=== PATIENT | male | born 1975 | race Caucasian/White ===

== ENCOUNTER 2017-09-25 06:15 | Day surgery (SDC) | payer BC ==
[2017-09-20 08:15] VITALS: BMI 29.5
--- NOTE | 2017-09-25 00:50 | HP ---
HISTORY OF PRESENT ILLNESS: Mr. Turk is a 42-year-old man known to us from previous evaluations of both neck and lower back issues, but returns today with worsening L5 and S1 pains bilaterally, left is worse than right. He has new MRI on disk on touchdown imaging that revealed calcified disk osteop hyte complex at L5 bilateral traversing S1 nerve root addition of the bilateral L5 foramina ___ __ conservative efforts. He hopes to move forward with surgery. PAST MEDICAL HISTORY: Significant for gout. PAST SURGICAL HISTORY: None listed. CURRENT MEDICATIONS: TRAMADOL and NAPROXEN. ALLERGIES: No known drug allergies. PHYSICAL EXAMINATION: NEUROLOGIC: The patient is alert and oriented x3. Gait is severely antalgic. Lower extremity motor exam is normal. ASSESSMENT: Lumbar radiculopathy. PLAN: Dr. Ramirez met with the patient, reviewed imaging and ultimately advocated for an L5 decompress ion. He explained to the patient the risks, benefits, and alternatives to the procedure. The patien t expressed understanding and would like to move forward with surgery as discussed. I do believe the patient is mentally competent and capable of making medical decisions for himself and we will move f orward with surgery as planned. Miguel Christina PA-C dictating for Dr. Ramirez.
[2017-09-25] MEDS ORDERED: CEFAZOLIN/Water 2 GM/20 ML SYRINGE ONE ×2 (06:53→12:40)
[2017-09-25] MEDS ORDERED: Fentanyl 100 MCG/2 ML VIAL ONE ×4 (07:06→11:08)
[2017-09-25] MEDS ORDERED: Midazolam HCl 2 mg/2 ml Vial ONE (07:06)
[2017-09-25] MEDS ORDERED: Bupivacaine PF 0.5% 30 ML VIAL ONE (08:30)
[2017-09-25] MEDS ORDERED: Bupivacaine HCl 0.5%/Epinephrine 1:200,000/PF 30 ml Vial ONE (09:15)
[2017-09-25] MEDS ORDERED: Tamsulosin HCl 0.4 MG CAP ONE (10:34)
[2017-09-25] MEDS ORDERED: Ondansetron HCl/PF 4 MG/2 ML Vial ONE (10:35)
[2017-09-25] MEDS ORDERED: HYDROcodone/Acetaminophen 5/325 mg Tablet ONE (11:41)
--- NOTE | 2017-09-25 11:46 | OP ---
DATE OF PROCEDURE: 09/25/2017 SURGEON: Titus Ramirez M.D. COPING MACHINE OPERATOR: Miguel Christina PA-C. INDICATION: Pain. DIAGNOSIS: Lumbar radiculopathy. PROCEDURE: Bilateral L5 hemilaminectomy, medial facetectomy, decompression. ANESTHESIA: General. TECHNIQUE: The patient was brought into the operating room and placed under general anesthesia. He was flipped from a supine to a prone position on the operating room table. A linear incision was lynda nned over the L5 segment. This encompassed a portion of an older incision. After prepping and drapi ng and after an appropriate operative pause, the incision was created. The soft tissues were swept a way from midline. Self-retaining retractor was placed in the wound for optimal exposure. After conf irming the appropriate level with C-arm fluoroscopy, a high-speed cutting drill bit as well as 2, 3 a nd 4-mm Kerrison was used to perform bilateral partial hemilaminectomies along the inferior aspect of L5 and the superior aspect of S1. The descending S1 nerve roots were identified and these were subs equently decompressed by performing medial facetectomies. At the completion of the procedure, the pa tient's lateral recess at the L5-S1 segment was well decompressed bilaterally. The wound was then ir rigated. Hemostasis was maintained throughout. The wound was then closed in anatomic layers and a p ressure dressing was applied. There were no known procedural complications.
[2017-09-25] MEDS ORDERED: ePHEDrine/0.9% NaCl/PF SYRINGE 50 mg/10 ml ONE (14:51)
[2017-09-25] MEDS ORDERED: PROPOFOL 200 MG/20 ML VIAL ONE (14:51)
[2017-09-25] MEDS ORDERED: Glycopyrrolate 0.2 MG/ML 5 ML SYRINGE ONE (14:51)
[2017-09-25] MEDS ORDERED: Lidocaine 1% PF 5 ML VIAL ONE (14:51)
== END 2017-09-25 13:15 | disposition home or self-care (01) ==
LOC: SDC 06:15
PROVIDERS: ATTEND Neurological Surgery
PROC: 01NB0ZZ Release Lumbar Nerve, Open Approach (ICD-10-PCS; principal; 2017-09-25)
DX: M54.16 Radiculopathy, lumbar region (principal); M10.9 Gout, unspecified; Z88.5 Allergy status to narcotic agent; Z88.8 Allergy status to other drugs, medicaments and biological substances; Z79.899 Other long term (current) drug therapy
CPT/HCPCS: 76001; 96374; 96375; J0670; J2001; J2250; J2405; J2704; J3010; S0020

== ENCOUNTER 2017-11-28 07:03 | Day surgery (SDC) | payer BC ==
[2017-11-28 08:19] VITALS: BP 144/96; TEMP 97.8
--- NOTE | 2017-11-28 10:14 | RAD ---
MYELOGRAM CERVICAL: Date: 11-28-17 History: 42-year-old male with bilateral cervical radiculopathy. Technique: Signed informed consent obtained. Patient placed in prone ENGLISH position on fluoroscopy table. Skin of lower back prepared and draped in the usual sterile fashion. 25 gauge needle used to apply buffered L idocaine superficially and deeply. From a right paramedian approach, a 22 gauge spinal needle was adv anced into the spinal canal at the L2-3 level. Upon brisk return of clear CSF, a total of 10 ml of Is ovue M300 was injected intrathecally under fluoroscopic guidance. Needle was removed. No complication s. The fluoroscopy table was then tilted Trendelenburg, allowing the contrast material to flow from t he lumbar spine to the cervical spine. Patient was then taken to CT. IMPRESSION: 1. Technically successful cervical myelogram. 2. See separate report of the CT myelogram. POS: HEATHER
[2017-11-28] MEDS ORDERED: Iopamidol-M 300 61% 15 ML VIAL ONE (10:59)
--- NOTE | 2017-11-28 13:18 | CT ---
CT CERVICAL SPINE WITH CONTRAST (CT CERVICAL MYELOGRAM): Date: 11-28-17 History: 42-year-old male with cervicalgia and bilateral upper extremity radiculopathy. FINDINGS: There is a metallic artificial disc at C5-6. The rest of the disc spaces are maintained. Vertebral norah dy heights are maintained. Alignment is normal. Cervical spinal cord is normal in size. There are no high grade degenerative facet changes at any level. No evidence of focal disc herniation that impinge s on a nerve root. No central spinal canal stenosis, and no high grade neuroforaminal stenosis at any level. Prevertebral and retropharyngeal spaces are unremarkable. IMPRESSION: 1. Artificial disc at C5-6. 2. Otherwise normal. POS: HEATHER
== END 2017-11-28 10:30 | disposition home or self-care (01) ==
LOC: RAD 07:03
PROVIDERS: ATTEND Neurological Surgery
DX: M54.12 Radiculopathy, cervical region (principal); Z96.698 Presence of other orthopedic joint implants
CPT/HCPCS: 62302; 70491; 72126

== ENCOUNTER 2018-10-05 09:03 | Outpatient (CLI) | payer BC ==
[2018-10-05 10:07] LABS: Hemoglobin 14.6 g/dL (14.0-18.0); Mean Corpuscular HGB CONC 35.7 g/dL (32.0-36.0); Mean Corpuscular Volume 86.7 fL (78.0-98.0); Mean Platelet Volume 6.6 fL (7.4-10.4); Platelet Count 285 thou/uL (130-400); RBC Distribution Width 11.8 % (11.5-14.5); Red Blood Cell (RBC) Count 4.71 mill/uL (4.70-6.10); White Blood Cell (WBC) Count 5.4 thou/uL (4.8-10.8)
[2018-10-05 10:34] LABS: Anion Gap 12 mmol/L (10-20); BUN (Urea Nitrogen) 12 mg/dL (8.9-20.6); Calc. Creatinine Clearance 0 mL/min (70-130); Calcium 9.6 mg/dL (7.8-10.44); Carbon Dioxide 26 mmol/L (22-29); Chloride 101 mmol/L (98-107); Estimated GFR-MDRD 83; Glucose 129 mg/dL (70-105); Sodium 135 mmol/L (136-145)
--- NOTE | 2018-10-05 16:30 | EKG ---
Test Reason : Blood Pressure : / mmHG Vent. Rate : 072 BPM Atrial Rate : 072 BPM P-R Int : 140 ms QRS Dur : 094 ms QT Int : 392 ms P-R-T Axes : 048 047 027 degrees QTc Int : 429 ms Normal sinus rhythm Normal ECG When compared with ECG of 03-FEB-2010 16:48, No significant change was found Confirmed by WARREN CASTRO, DR. Grant ([id number]) on 10/05/2018 4:29:59 PM Referred By: HIRAL Confirmed By:DR. Rudy KELLEY MD
== END 2018-10-05 09:04 | disposition home or self-care (01) ==
LOC: LABBT 09:03
PROVIDERS: ATTEND Neurological Surgery
DX: Z01.818 Encounter for other preprocedural examination (principal); G56.01 Carpal tunnel syndrome, right upper limb; G56.21 Lesion of ulnar nerve, right upper limb
CPT/HCPCS: 80048; 85027; 93005; 93010

== ENCOUNTER → 2018-10-12 | Day surgery (SDC) | payer BC ==
[2018-10-05 09:28] VITALS: BMI 29.5
[~2018-10-12] MED LIST: Bupivacaine HCl 0.5%/Epinephrine 1:200,000/PF 30 ml Vial ONE; Ketorolac Tromethamine 30 MG/ML VIAL ONE; Lidocaine 1% w/Epinephrine 1:100K 20 ML VIAL ONE; Midazolam HCl 2 mg/2 ml Vial ONE; Ondansetron PF 4 MG/2 ML Vial ONE; PROPOFOL 200 MG/20 ML VIAL ONE; ceFAZolin Sodium (SDC) 2 GM/100 ML BAG ONE
--- NOTE | 2018-10-12 08:54 | HP ---
HISTORY OF PRESENT ILLNESS: Mr. Turk is a very pleasant 43-year-old man, known to us from prior evaluations of both neck and low back complaints with history of lumbar decompression with us, who returns now with progressive symptoms that really amount to peripheral neuropathies in the bilateral upper extremities, the most significant is in the right upper extremity. He reports numbness in all digits of the hands, although numbness that radiates down the ulnar distribution of the arm. This wakes him up at night frequently. He attempted for this and only helps minimally. He did have new imaging of his cervical spine, that reveals no significant foraminal/central canal stenosis that would be explanatory of these symptoms. He comes to discuss other possible treatments. He has also had an NCV performed that reveals latency in both the median and ulnar bilateral upper extremities. PAST MEDICAL HISTORY: Significant for gout. PAST SURGICAL HISTORY: Lumbar decompression. CURRENT MEDICATIONS: Tramadol and naproxen. ALLERGIES: NO KNOWN DRUG ALLERGIES. PHYSICAL EXAMINATION: NEUROLOGIC: The patient is alert and oriented x3. Gait is normal. Upper extremity motor exam is normal, although he has sensory disturbance to the bilateral hands, right greater than left. He has positive median and ulnar nerve bilaterally, the right is much more than the left. ASSESSMENT: Right carpal tunnel and right ulnar neuropathy. PLAN: Dr. Ramirez met with the patient, reviewed his cervical imaging and NCV studies, and advocated for right ulnar decompression and right carpal tunnel release. He explained to the patient the risks, benefits, and alternatives to the procedure. The patient expressed understanding and elected to move forward with surgery as discussed. I do believe the patient is mentally competent and capable of making medical decisions for himself. We will move forward with surgery as planned. Job ID: [id number]
--- NOTE | 2018-10-15 11:43 | OP ---
DATE OF PROCEDURE: 10/12/2018 LABOR COMMISSIONER: Miguel Christina PA-C INDICATION: Pain, numbness, and weakness. DIAGNOSES: Carpal tunnel syndrome, right and ulnar neuropathy, right. PROCEDURES PERFORMED: Right carpal tunnel release and right ulnar nerve decompression. ANESTHESIA: General. DESCRIPTION OF PROCEDURE: The patient was brought into the operating room and placed under general anesthesia. He was placed on the table in a supine position. His right arm was extended perpendicular to his body and prepped and draped up to the level of the axilla. Two linear incisions were planned, one across the crease of the elbow over the ulnar nerve. The second in-line with the crease of the wrist parallel to the long axis of the 4th digit. After both were prepped and draped, both were infiltrated with lidocaine with epinephrine for the purposes of analgesia and hemostasis. We began with treatment of the wrist, where an incision was created and a self-retaining retractor was placed. The carpal tunnel ligament was identified and incised. It was extended in both proximal and distal directions until the elements of the carpal tunnel were decompressed. Hemostasis was maintained and the wound was irrigated well. We then redirected our attention to the ulnar nerve, where the linear incision was planned over the ulnar nerve. A self-retaining retractor was placed. Using blunt dissection, the ulnar nerve was identified and an adhesiolysis was performed in the ulnar nerve in order to adequately decompress that nerve. After decompression of the nerve, both incisions were again irrigated and hemostasis was maintained. Both incisions were then closed in a single-layer technique. The procedure then came to an end without concern for complication. Job ID: [id number]
== END ==
LOC: SDC 07:59
PROVIDERS: ATTEND Neurological Surgery
PROC: 01N40ZZ Release Ulnar Nerve, Open Approach (ICD-10-PCS; principal; 2018-10-12)
PROC: 01N50ZZ Release Median Nerve, Open Approach (ICD-10-PCS; principal; 2018-10-12)
DX: G56.01 Carpal tunnel syndrome, right upper limb (principal); G56.21 Lesion of ulnar nerve, right upper limb; M10.9 Gout, unspecified; Z79.1 Long term (current) use of non-steroidal anti-inflammatories (NSAID)
CPT/HCPCS: J0670; J0690; J1885; J2001; J2250; J2405; J2704

== ENCOUNTER 2018-12-07 05:50 | Day surgery (SDC) | payer BC ==
[2018-12-03 09:26] VITALS: BMI 29.5
[2018-12-07] MEDS ORDERED: Midazolam HCl 2 mg/2 ml Vial ONE ×2 (08:17→08:44)
[2018-12-07] MEDS ORDERED: Propofol 500 MG/50 ML VIAL ONE (08:44)
[2018-12-07] MEDS ORDERED: Fentanyl 100 MCG/2 ML VIAL ONE (08:44)
[2018-12-07] MEDS ORDERED: Famotidine/PF 20 mg/2ml Vial ONE (08:44)
--- NOTE | 2018-12-07 10:15 | OP ---
DATE OF PROCEDURE: 12/07/2018 INFORMATION SYSTEMS PLANNER: Miguel Christina PA-C INDICATION: Pain. DIAGNOSES: Median neuropathy and ulnar neuropathy, left. PROCEDURES PERFORMED: 1. Median nerve decompression, left wrist. 2. Ulnar nerve decompression, left elbow. ANESTHESIA: General. DESCRIPTION OF PROCEDURE: The patient was brought into the operating room and placed under general anesthesia. His left arm was extended perpendicular to his body and prepped and draped up to the level of the axilla. Two linear incisions were planned. The first at the level of the wrist on the left side in-line with the long axis of the 4th digit. The second was a curvilinear incision across the elbow in-line with the ulnar nerve. Both areas were infiltrated with lidocaine. The wrist was treated first where an incision was created. A self-retaining retractor was placed. The underlying carpal tunnel ligament was identified and incised. The incision was extended in both proximal and distal directions until the carpal tunnel elements were decompressed. We then redirected our attention to the level of the elbow, where a curvilinear incision was created. The underlying ulnar nerve was identified, where adhesiolysis was performed around the nerve until it was decompressed. Both incisions were then irrigated. Hemostasis was maintained throughout. Both wounds were closed in anatomic layers. The procedure came to an end without any known complications. Job ID: [id number]
[2018-12-07] MEDS ORDERED: traMADol HCl 50 MG TAB ONE (10:36)
== END 2018-12-07 11:25 | disposition home or self-care (01) ==
LOC: SDC 05:50
PROVIDERS: ATTEND Neurological Surgery
PROC: 01N50ZZ Release Median Nerve, Open Approach (ICD-10-PCS; principal; 2018-12-07)
PROC: 01N40ZZ Release Ulnar Nerve, Open Approach (ICD-10-PCS; principal; 2018-12-07)
DX: G56.22 Lesion of ulnar nerve, left upper limb (principal); G56.02 Carpal tunnel syndrome, left upper limb; Z88.5 Allergy status to narcotic agent
CPT/HCPCS: J0131; J0690; J2250; J2704; J3010; S0028

== ENCOUNTER 2019-08-21 12:09 | Emergency (ER) | payer BC ==
[2019-08-21 12:54] LABS: #Eosinphils 0.2 thou/uL (0.0-0.7); #Lymphocytes 1.4 thou/uL (1.20-3.40); #Monocytes 0.4 thou/uL (0.11-0.59); #Neutrophils 3.7 thou/uL (1.40-6.50); %Basophils 0.7 % (0.0-1.0); %Eosinophils 3.6 % (0.0-10.0); %Lymphocytes 24.2 % (21.0-51.0); %Monocytes 7.2 % (0.0-10.0); %Neutrophils 64.2 % (42.0-75.0); Hemoglobin 15.7 g/dL (14.0-18.0); Mean Corpuscular HGB CONC 34.3 g/dL (32.0-36.0); Mean Corpuscular Hemoglobin 30.4 pg (27.0-31.0); Mean Corpuscular Volume 88.7 fL (78.0-98.0); Mean Platelet Volume 6.8 fL (7.4-10.4); Platelet Count 271 thou/uL (130-400); RBC Distribution Width 11.7 % (11.5-14.5); Red Blood Cell (RBC) Count 5.15 mill/uL (4.70-6.10); White Blood Cell (WBC) Count 5.7 thou/uL (4.8-10.8)
[2019-08-21 13:20] LABS: ALT (SGPT) 29 U/L (8-55); AST (SGOT) 18 U/L (5-34); Albumin 4.3 g/dL (3.5-5.0); Alkaline Phosphatase 130 U/L (40-110); Anion Gap 13 mmol/L (10-20); BUN (Urea Nitrogen) 14 mg/dL (8.9-20.6); Bilirubin, Total 0.4 mg/dL (0.2-1.2); Calc. Creatinine Clearance 0 mL/min (70-130); Calcium 9.4 mg/dL (7.8-10.44); Carbon Dioxide 25 mmol/L (22-29); Chloride 104 mmol/L (98-107); Estimated GFR-MDRD 69; Globulin 2.7 g/dL (2.4-3.5); Glucose 104 mg/dL (70-105); Potassium 3.9 mmol/L (3.5-5.1); Sodium 138 mmol/L (136-145)
[2019-08-21 13:43] LABS: Bilirubin Negative (Negative); Blood, Urine Negative (Negative); Clarity Clear (Clear); Glucose, Urine (Dipstick) Normal (Negative); Leukocyte Negative Leu/uL (Negative); Nitrite Negative (Negative); Protein, Urine (Dipstick) Negative (Neg-Trace); Urobilinogen Normal mg/dL (Less than 2)
[2019-08-21] MEDS ORDERED: Famotidine/PF 20 mg/2ml Vial ONE (13:46)
[2019-08-21] MEDS ORDERED: Ondansetron PF 4 MG/2 ML Vial ONE (13:46)
[2019-08-21] MEDS ORDERED: Pantoprazole 40 MG VIAL ONE (13:46)
--- NOTE | 2019-08-21 13:49 | CT ---
CT Abdomen Pelvis W Con: 08/21/2019 1:22 PM CLINICAL INFORMATION: Hematemesis and upper abdominal pain COMPARISON: None. TECHNIQUE: Multiple contiguous axial images were obtained and a CT of the abdomen and pelvis with IV contrast. C oronal and sagittal reformats were performed. FINDINGS: Lower Chest: within normal limits. Abdomen: Liver: within normal limits. Bile Ducts: Normal caliber. Gallbladder: No calcified gallstones. Normal caliber wall. Pancreas: within normal limits. Spleen: within normal limits. Adrenals: within normal limits. Kidneys: within normal limits. Pelvis: Reproductive Organs: No pelvic masses. Ureters: within normal limits. Bladder: within normal limits. Peritoneum: No ascites or free air, no fluid collection. Bowel: Normal caliber. Scattered diverticula in the colon. Mesentery and Retroperitoneum: No enlarged mesenteric or retroperitoneal lymph nodes. Vessels: Atherosclerotic calcifications. Abdominal Wall: within normal limits. Bones: Degenerative changes in the spine. IMPRESSION: No evidence of acute intraabdominal or pelvic abnormality.
[2019-08-21] MEDS ORDERED: Metoclopramide HCl 10 MG/2 ML VIAL ONE (14:30)
[2019-08-21] MEDS ORDERED: Iopamidol-370 76% 500 ML 1 ML ONE (15:52)
== END 2019-08-21 15:30 | disposition home or self-care (01) ==
LOC: ERS 12:09
DX: K92.0 Hematemesis (principal); I10 Essential (primary) hypertension; F32.9 Major depressive disorder, single episode, unspecified; F17.220 Nicotine dependence, chewing tobacco, uncomplicated; Z79.891 Long term (current) use of opiate analgesic
CPT/HCPCS: 74177; 80053; 81003; 82274; 83690; 85025; 96361; 96374; 96375; C9113; J2405; J2765; Q9967; S0028